=== PATIENT | female | born 1980 | race Caucasian/White ===

== ENCOUNTER 2024-04-07 00:21 | Emergency (ER) | payer BC ==
[~2024-04-07] VITALS: Ht 172.7 cm; Wt 59.0 kg
[2024-04-07 00:35] VITALS: BP 123/75; TEMP 97.7
[2024-04-07] MEDS ORDERED: ACET-907 PO (01:11)
[2024-04-07] MEDS ORDERED: ACETAMINOPHEN W/ CODEINE#3 1 EA TABLET ONE (01:16)
[2024-04-07] MEDS: ACETAMINOPHEN W/ CODEINE#3 1 EA TABLET PO ONE (01:19)
[2024-04-07 01:25] VITALS: O2SAT 99
== END 2024-04-07 01:31 | disposition home or self-care (01) ==
LOC: ER 00:23
DX: S92.512A Displaced fracture of proximal phalanx of left lesser toe(s), initial encounter for closed fracture (principal); Z79.899 Other long term (current) drug therapy; W22.03XA Walked into furniture, initial encounter; Y93.89 Activity, other specified; Y92.89 Other specified places as the place of occurrence of the external cause; Y99.8 Other external cause status
CPT/HCPCS: 73660-TC